=== PATIENT | male | born 1980 | race African-American/Black ===

== ENCOUNTER 2021-12-28 19:29 | Emergency (ER) | payer OTHER ==
[2021-12-28 19:59] VITALS: BP 133/76; PULSE 80; TEMP 98.3; BMI 25.0
[2021-12-28] MEDS ORDERED: diazePAM 5 MG TABLET PO ONE (20:57)
[2021-12-28] MEDS ORDERED: KETOROLAC TROMETHAMINE 30 MG/1 ML VIAL IM ONE (20:57)
[2021-12-28] MEDS ORDERED: LIDOCAINE 5% TOPICAL PATCH TP ONE (20:57)
[2021-12-28] MEDS ORDERED: LIDOCAINE 5% TOPICAL PATCH ONE (20:59)
[2021-12-28] MEDS ORDERED: KETOROLAC TROMETHAMINE 30 MG/1 ML VIAL ONE (20:59)
[2021-12-28] MEDS ORDERED: diazePAM 5 MG TABLET ONE (20:59)
[2021-12-28] MEDS ORDERED: LIDOCAINE PATCH REMOVAL MC SCH (22:00)
== END 2021-12-28 21:04 | disposition home or self-care (01) ==
LOC: JERFT 19:29
PROC: 3E0233Z Introduction of Anti-inflammatory into Muscle, Percutaneous Approach (ICD-10-PCS; principal; 2021-12-28)
DX: M54.42 Lumbago with sciatica, left side (principal); M54.41 Lumbago with sciatica, right side
CPT/HCPCS: 99284-25

== ENCOUNTER 2022-03-15 09:57 | Emergency (ER) | payer OTHER ==
[2022-03-15 10:07] VITALS: BP 129/83; PULSE 61; RESP 18; TEMP 97.8; BMI 25.8
[2022-03-15] MEDS ORDERED: diazePAM 5 MG TABLET PO ONE (10:30)
[2022-03-15] MEDS ORDERED: LIDOCAINE 5% TOPICAL PATCH TP ONE (10:30)
[2022-03-15] MEDS ORDERED: KETOROLAC TROMETHAMINE 30 MG/1 ML VIAL IM ONE (10:30)
[2022-03-15] MEDS ORDERED: KETOROLAC TROMETHAMINE 30 MG/1 ML VIAL ONE (10:35)
[2022-03-15] MEDS ORDERED: diazePAM 5 MG TABLET ONE (10:35)
[2022-03-15] MEDS ORDERED: LIDOCAINE 5% TOPICAL PATCH ONE (10:35)
[2022-03-15] MEDS ORDERED: LIDOCAINE PATCH REMOVAL MC ONE (22:00)
== END 2022-03-15 11:22 ==
LOC: JERFT 09:57
PROC: 3E023GC Introduction of Other Therapeutic Substance into Muscle, Percutaneous Approach (ICD-10-PCS; principal; 2022-03-15)
DX: M54.42 Lumbago with sciatica, left side (principal)
CPT/HCPCS: 99284-25

== ENCOUNTER 2023-01-13 12:09 | Emergency (ER) | payer OTHER ==
[2023-01-13 12:18] VITALS: BP 108/65; PULSE 60; RESP 18; TEMP 98.5; BMI 26.6
[2023-01-13] MEDS ORDERED: ACETAMINOPHEN 500 MG TABLET (FP) PO ONE (12:31)
[2023-01-13] MEDS ORDERED: KETOROLAC TROMETHAMINE 30 MG/1 ML VIAL IM ONE (12:31)
[2023-01-13] MEDS ORDERED: LIDOCAINE 5% TOPICAL PATCH TP ONE (12:32)
[2023-01-13] MEDS ORDERED: LIDOCAINE 5% TOPICAL PATCH ONE (12:43)
[2023-01-13] MEDS ORDERED: KETOROLAC TROMETHAMINE 30 MG/1 ML VIAL ONE (12:43)
[2023-01-13] MEDS ORDERED: ACETAMINOPHEN 500 MG TABLET (FP) ONE (12:44)
[2023-01-13] MEDS ORDERED: LIDOCAINE PATCH REMOVAL MC ONE (22:00)
== END 2023-01-13 13:17 | disposition home or self-care (01) ==
LOC: JER 12:09 → JERFT 12:09
PROC: 3E0233Z Introduction of Anti-inflammatory into Muscle, Percutaneous Approach (ICD-10-PCS; principal; 2023-01-13)
DX: M54.50 Low back pain, unspecified (principal); V89.2XXA Person injured in unspecified motor-vehicle accident, traffic, initial encounter
CPT/HCPCS: 99284-25

== ENCOUNTER 2024-01-20 15:18 | Emergency (ER) | payer SELFPAY ==
[2024-01-20 15:28] VITALS: BP 108/63; PULSE 88; RESP 18; TEMP 98.8; BMI 25.8
[2024-01-20] MEDS ORDERED: ACETAMINOPHEN 325 MG TABLET (FP) ONE (16:37)
[2024-01-20] MEDS: ACETAMINOPHEN 325 MG TABLET (FP) PO ONE (16:42)
[2024-01-20 16:53] LABS: BASO % 0.2 % (0-2.0); EOS % 4.3 % (0-4.5); HEMATOCRIT 38.4 % (35.4-49); HEMOGLOBIN 13.3 GM/dL (11.7-16.9); LYMPH % 32.4 % (8-40); MCHC 34.5 g/dl (32.0-35.9); MEAN PLT VOLUME 7.8 fl (7.5-11.1); MONO % 9.8 % (3.8-10.2); NEUT % 53.3 % (42.8-82.8); PLATELET COUNT 224 10^3/uL (134-434); RBC 4.42 M/mm3 (4.00-5.60); RDW 13.1 % (11.9-15.9); WHITE BLOOD COUNT 6.5 K/mm3 (4.0-10.0)
[2024-01-20 17:24] LABS: POTASSIUM 4.3 mmol/L (3.5-5.1)
[2024-01-20 17:28] LABS: CALCIUM 8.6 mg/dL (8.5-10.1)
[2024-01-20 17:29] LABS: ALBUMIN 3.5 g/dl (3.4-5.0); BLOOD UREA NITROGEN 13.7 mg/dL (7-18)
[2024-01-20 17:34] LABS: BILIRUBIN,TOTAL 0.9 mg/dL (0.2-1); TOT PROT 6.7 g/dl (6.4-8.2)
== END 2024-01-20 18:00 | disposition home or self-care (01) ==
LOC: JER 15:18
DX: R07.2 Precordial pain (principal)
CPT/HCPCS: 36415; 71046-TC-FY; 80053; 84484; 85025; 93005; 93010; 99285-25

== ENCOUNTER 2024-06-30 23:22 | Emergency (ER) | payer OTHER ==
[2024-06-30 23:28] VITALS: BP 98/60; PULSE 76; RESP 16; TEMP 98.5; BMI 25.8
[2024-07-01] MEDS: IBUPROFEN 400 MG TABLET (FP) PO ONE ×2 (00:46)
[2024-07-01] MEDS ORDERED: IBUPROFEN 400 MG TABLET (FP) PO ONE (00:47)
== END 2024-07-01 02:54 | disposition home or self-care (01) ==
LOC: JER 23:22
DX: M25.512 Pain in left shoulder (principal); M79.644 Pain in right finger(s); M25.532 Pain in left wrist; V89.2XXA Person injured in unspecified motor-vehicle accident, traffic, initial encounter
CPT/HCPCS: 73110-TC-RT-FY; 73130-TC-RT-FY; 99283-25